=== PATIENT | male | born 1960 | race Caucasian/White ===

== ENCOUNTER 2024-10-05 09:40 | Day surgery (SDC) | payer BC, SELFPAY ==
[2024-10-05 09:50] VITALS: BMI 32.7
[2024-10-05] MEDS: LACTATED RINGERS 1000ML 1,000 ML 50 ML IV (10:05)
[2024-10-05 10:06] VITALS: BP 128/80; PULSE 84; RESP 16; TEMP 36.1; O2SAT 97
--- NOTE | 2024-10-05 10:19 | EXP.ANES.CKL ---
[facility] Disclaimer: The information contained in this section may have been updated after the patient was seen, as this information can be updated by other users. Medical History Hypertension Surgical History History of arthroscopy of both knees History of bilateral knee replacement History of colonoscopy Family History Other No significant family history Social History Smoking Status: Never smoker alcohol intake: current substance use type: denies use current occupational status: employed and retired Travel in the last 8 weeks?: Outside the [facility] Anesthesia Checklist Patient Identification Patient Identification: Arm Band and Verbal (Name & ) Structural Data Admitted From: Home Planned Operative Procedure/s: colonoscopy Consent for Planned Operative Procedure(s) Verified: Yes Verified Documents: Surgical Consent NPO Status Verified Time NPO: 00:00 Chart Verification Results Verified: None Additional verifications Anesthesia Reactions: No Hx Blood Transfusions: No Blood Transfusion Reaction: No Cephalosporin Allergy: No Airway Assessment Mallampati Score:: Class III C-Spine Mobility Assessed: Yes TMJ Mobility Assessed: No Dentition: Good Dentition Neurological Assessment Level of Consciousness: Awake, Alert and Appropriate Anesthesia Plan Anesthesia Risk discussed: Yes Anesthesia Plan: Verified ASA Class: II Anesthesia Type: MAC
[2024-10-05 11:14] VITALS: O2SAT 98
--- NOTE | 2024-10-05 11:28 | HMH.PROCNOTE ---
[facility] Procedure Note Date: 10/05/24 Time: 11:47 Procedure Note:: Colonoscopy Procedure Report: Colonoscopy with cold snare polypectomy Endoscopist: Jeet Brewer II, MD Referring physician: Nusrat Eastman MD, [address] [place] [address], [id number], [place] [address] Date of Procedure: October 05, 2024 Equipment: Olympus 190 variable stiffness pediatric colonoscope Sedation: MAC sedation Indication: Mr. Perrin is a 64-year-old gentleman who is here for follow-up surveillance colonoscopy. He does have a personal history of adenomatous colon polyps. His first colonoscopy revealed 12 colon polyps (tubular adenomas) which were removed. His next colonoscopy at 1 year revealed 2 polyps and he was given 3 years. His last colonoscopy 5 to 7 years ago revealed no polyps. The patient reports no abdominal pain, weight loss, change in his bowel habits or rectal bleeding. He does have 2 first cousins with colon cancer. Procedure: Prior to the procedure, a history and physical exam was performed, and patient's medications and allergies were reviewed. The risks, benefits and alternatives of the sedation and procedure were discussed with the patient. All questions were answered and informed consent was obtained. The patient was brought to the procedure room. Patient identification and proposed procedure were verified by the physician and the nurse. The patient was placed in a left lateral decubitus position and the scope was passed under direct vision. Throughout the procedure, the patient's blood pressure, pulse, and oxygen saturations were monitored continuously. The colonoscopy was accomplished without difficulty. The patient tolerated the procedure well. Findings: On digital rectal examination there was normal rectal tone. There were no external hemorrhoids. The prostate was 2+, smooth, soft, symmetric without nodules. The colonoscope was introduced through the anal canal to the rectum and advanced to the cecum. The ileocecal valve and appendiceal orifice were identified. The scope was advanced a short distance into the ileum which appeared grossly normal. The scope was then withdrawn into the colon. There was a single 3 mm diminutive polyp in the sigmoid colon removed via cold snare polypectomy. The remaining cecum, ascending, transverse, descending, sigmoid and rectum were grossly normal. There were no other mucosal abnormalities identified. Upon retroflexion within the rectum there were grade 2 internal hemorrhoids. The preparation was excellent throughout with Ambrose Preparation Score of 9. The cecal time was 15 minutes. Impression: 1. Diminutive 3 mm sigmoid polyp 2. Grade 2 internal hemorrhoids Plan: I will follow-up the polyp histology and recommend repeat surveillance colonoscopy again in 7 years. I would encourage psyllium bulking fiber supplementation on a maintenance basis.
[2024-10-05 11:48] VITALS: BP 83/59; PULSE 80; RESP 16; TEMP 36.8; O2SAT 95
[2024-10-05 11:58] VITALS: BP 84/62; PULSE 81; RESP 16; O2SAT 94
[2024-10-05 12:08] VITALS: BP 101/77; PULSE 80; RESP 17; O2SAT 95
[2024-10-05 12:18] VITALS: BP 106/78; PULSE 80; RESP 17; O2SAT 95
--- NOTE | 2024-10-07 10:31 | EXP.HP ---
History of Present Illness *Admission Date: 10/05/24 *Reason for visit:: Surveillance *History of present illness: Mr. Perrin is a 64-year-old gentleman who is here for follow-up surveillance colonoscopy. He does have a personal history of adenomatous colon polyps. His first colonoscopy revealed 12 colon polyps (tubular adenomas) which were removed. His next colonoscopy at 1 year revealed 2 polyps and he was given 3 years. His last colonoscopy 5 to 7 years ago revealed no polyps. The patient reports no abdominal pain, weight loss, change in his bowel habits or rectal bleeding. He does have 2 first cousins with colon cancer. [facility] Disclaimer: The information contained in this section may have been updated after the patient was seen, as this information can be updated by other users. Medical History (Updated 10/07/24 @ 10:32 by Jeet Brewer II, MD) Hypertension Surgical History History of arthroscopy of both knees History of bilateral knee replacement History of colonoscopy Family History Other No significant family history Social History (Updated 10/05/24 @ 10:20 by Mo Gonzalez CRNA) Smoking Status: Never smoker alcohol intake: current substance use type: denies use current occupational status: employed and retired Travel in the last 8 weeks?: Outside the [facility] Have you lived/traveled outside US in past 30 days?: No Contact w/someone who lives/traveled outside US past 30 days?: No Exposure to someone with infectious disease in past 14 days?: No Do you have a fever (greater than 100.4 F or 38 C)?: No Have you tested positive for COVID-19?: No Exposed to someone with COVID-19 in past 14 days?: No Do you have a sore throat?: No Do you have a cough?: No Do you have any weakness?: No Are you experiencing any nausea/vomitting?: No Do you have any diarrhea?: No Are you experiencing any unusual bleeding?: No Do you have any muscle aches/pain?: No Do you have any abdominal pain?: No Are you experiencing loss of taste or smell?: No Review of Systems Review of Systems Review of systems (narrative): Negative *Cardiovascular Comments: Negative *Gastrointestinal Comments: Negative *Genitourinary Comments: Negative *Musculoskeletal Comments: Negative *Neurologic Comments: Negative Meds Home Medications and Allergies Home Medications ?Medication ?Instructions ?Recorded ?Confirmed ?Type sod picosulf 10 mg-magnes 3.5 175 ml PO DAILY Bowel Prep 2 doses 09/19/24 10/05/24 Rx gram-citric 12 gram/175 mL oral #350 mL solution (Clenpiq) chlorthalidone 25 mg tablet 25 mg PO DAILY 10/04/24 10/05/24 History losartan 25 mg tablet 50 mg PO DAILY 10/04/24 10/05/24 History New Prescriptions to Start Prescriptions: Allergies Allergy/AdvReac Type Severity Reaction Status Date / Time No Known Allergies Allergy Verified 10/04/24 12:01 Exam Data for Last 24 hours Vital signs and Labs for Last 24 Hours: Temp Pulse Resp BP Pulse Ox O2 Del Method O2 Flow Rate 98.2 F 80 17 106/78 L 95 Room Air 5 10/05/24 11:48 10/05/24 12:18 10/05/24 12:18 10/05/24 12:18 10/05/24 12:18 10/05/24 12:18 10/05/24 11:14 I & O for Last 24 hours: Intake & Output 10/04/24 10/05/24 10/06/24 10/07/24 23:59 23:59 23:59 23:59 Weight 255 lb *Routine HEENT Exam Head: Present normocephalic Eye: Present EOMI and PERRL ENT: Present mucous membranes moist *Routine Neck Exam Neck: Present supple *Routine Respiratory Exam Respiratory: Present CTA bilaterally *Routine Cardiovascular Exam Cardiovascular: Present RRR *Routine Abdominal Exam Abdominal: Present soft and normoactive bowel sounds; Absent tenderness *Routine Rectal Exam Rectal:: deferred *Routine Genitalia Exam Genitalia:: deferred *Routine Extremities Exam Extremities: Absent cyanosis, clubbing or edema *Routine Skin Exam Skin: Present warm; Absent rash *Routine Neurological Exam Neurological: Present alert and oriented X3 Assessment and Plan *Assessment and plan (1) Personal history of adenomatous and serrated colon polyps: Status: Acute Category: Medical Code(s): Z86.0101 - Personal history of adenomatous and serrated colon polyps Plan A/P: 1. Personal history of adenomatous colon polyps is the preprocedural diagnosis. The patient will be anesthetized/sedated using MAC sedation. The patient has been seen and examined. Cardiac and lung assessment prior to the examination is stable. Proceed with planned surveillance colonoscopy.
== END 2024-10-05 12:30 | disposition home or self-care (01) ==
PROVIDERS: Visit Provider Internal Medicine Gastroenterology
PROC: 0DJD8ZZ Inspection of Lower Intestinal Tract, Via Natural or Artificial Opening Endoscopic (ICD-10-PCS; CPT 45378; principal; 2024-10-05 11:30)
DX: Z12.11 Encounter for screening for malignant neoplasm of colon (principal); Z86.0101 Personal history of adenomatous and serrated colon polyps; Z80.0 Family history of malignant neoplasm of digestive organs; K63.5 Polyp of colon; K64.1 Second degree hemorrhoids
CPT/HCPCS: 45385; J7120